=== PATIENT | female | born 1945 | race Caucasian/White ===

== ENCOUNTER → 2018-02-01 12:29 | Outpatient (CLI) | payer MEDICARE, SELFPAY | PROVIDERS: Family Provider Internal Medicine; PCP Internal Medicine; Visit Provider Internal Medicine | DX: Z12.31 Encounter for screening mammogram for malignant neoplasm of breast (principal) | CPT/HCPCS: 77063; 77067 ==

== ENCOUNTER → 2019-02-02 | Outpatient (CLI) | payer MEDICARE, SELFPAY ==
--- NOTE | 2019-02-02 14:29 | BI_ITS ---
MAMMOGRAPHY - BILATERAL SCREENING REASON FOR EXAM: Female, 73 years old. Routine annual screening examination. PERTINENT HISTORY: Mother with breast cancer. Grandmother with breast cancer. Remote right stereotactic breast biopsy. TECHNIQUE: Digital bilateral breast brittany (3D mammographic acquisition) in the CC and MLO projections. 2-D mediolateral oblique (MLO) and craniocaudad (CC) views of both breasts were obtained. CAD: Full Field Digital Mammography with Computer Added Detection was performed. COMPARISON: Comparison is made with prior examination dated February 01, 2018 and November 05, 2016. FINDINGS: Breast Composition: There are scattered areas of fibroglandular density. There are no dominant masses or suspicious calcifications. A tissue clip marker is seen within the deep upper slightly medial aspect of the right breast. A tissue clip marker is also seen in the superior lateral retroareolar region of the right breast. This is unchanged. Stable appearance of the small bilateral axillary lymph nodes. No other significant abnormalities are identified. BI/SCREEN MAMM (CAD) W/BRITTANY BILAT IMPRESSION: Stable bilateral screening mammogram. Yearly follow-up mammogram recommended. (A) ASSESSMENT CATEGORY: BIRADS Category 2: Benign. A letter regarding these results will be sent to the patient by the facility within 30 days. Approximately 10% of breast cancers are not detected by mammography. A normal mammogram should not delay biopsy of a clinically suspicious abnormality. [id number] Electronically Signed: Moisés Peña, at 8:29 EDT , Service support ,
== END | disposition home or self-care (01) ==
LOC: OPBI 14:28
PROVIDERS: Family Provider Internal Medicine; PCP Internal Medicine; Referring Provider Internal Medicine; Visit Provider Internal Medicine
DX: Z12.31 Encounter for screening mammogram for malignant neoplasm of breast (principal)
CPT/HCPCS: 77063; 77067

== ENCOUNTER → 2019-12-14 | Outpatient (CLI) | payer MEDICARE, SELFPAY ==
--- NOTE | 2019-12-14 13:45 | MRI_ITS ---
STUDY: MRI BRAIN WITH AND WITHOUT CONTRAST (ATTENTION INTERNAL AUDITORY CANALS - I.A.C.''s) REASON FOR EXAM: Female, 74 years old. R ear pressure, decresed hearing to a dull sound x 3 mon TECHNIQUE: Standardized multiplanar fat and water weighted pulse sequences were obtained. IV 15cc doatrem was administered for the contrast portion of the examination. COMPARISON: None. FINDINGS: Brain parenchyma is normal. Bilateral temporal bones and related structures are normal. Intracranial enhancement is normal. Bilateral maxillary and right frontal sinuses are fluid-filled with minor mucosal reactive change. Nasopharynx is normal. MRI/Brain W/WO Contrast IMPRESSION: 1. Normal brain. 2. Normal temporal bone related structures. 3. Bilateral maxillary and right frontal sinus reactive changes. Electronically Signed: Dafne Olivas, at 15:36 EDT Tel , Service support ,
[2019-12-14 13:46] LABS: CREATININE FINGERSTICK 0.6 mg/dL (0.55-1.02); EGFR FINGERSTICK > 60.0000 mL/min (>60)
== END | disposition home or self-care (01) ==
LOC: MRI 12:53
PROVIDERS: PCP Internal Medicine; Referring Provider Otolaryngology; Visit Provider Otolaryngology
DX: H91.90 Unspecified hearing loss, unspecified ear (principal)
CPT/HCPCS: 70553; A9575

== ENCOUNTER → 2020-01-18 | Outpatient (CLI) | payer MEDICARE, SELFPAY | END | disposition home or self-care (01) | LOC: MTDU 11:00 | PROVIDERS: PCP Internal Medicine; Referring Provider Otolaryngology; Visit Provider Otolaryngology | DX: Z11.59 Encounter for screening for other viral diseases (principal) | CPT/HCPCS: 87635; 94799; C9803; U0003 ==

== ENCOUNTER → 2020-02-15 | Outpatient (CLI) | payer MEDICARE, SELFPAY ==
--- NOTE | 2020-02-15 13:03 | BI_ITS ---
MAMMOGRAPHY - BILATERAL SCREENING REASON FOR EXAM: Female, 74 years old. Routine annual screening examination. PERTINENT HISTORY: Mother with breast cancer. Grandmother with breast cancer. TECHNIQUE: Digital bilateral breast brittany (3D mammographic acquisition) in the CC and MLO projections. 2-D mediolateral oblique (MLO) and craniocaudad (CC) views of both breasts were obtained. CAD: Full Field Digital Mammography with Computer Added Detection was performed. COMPARISON: Comparison is made with prior examination of 02/02/2019 and 02/01/2018. FINDINGS: Breast Composition: There are scattered areas of fibroglandular density. There are no dominant masses or suspicious calcifications. A tissue clip marker is once again seen in the upper deep slightly medial aspect of the right breast. A second tissue clip marker is seen in the superior lateral aspect of the retroareolar region of the right breast. No other significant abnormalities are identified. There has been no significant change since the prior study. BI/SCREEN MAMM (CAD) W/BRITTANY BILAT IMPRESSION: Stable bilateral screening mammogram. Yearly follow-up mammogram recommended. (A) ASSESSMENT CATEGORY: BIRADS Category 2: Benign. A letter regarding these results will be sent to the patient by the facility within 30 days. Approximately 10% of breast cancers are not detected by mammography. A normal mammogram should not delay biopsy of a clinically suspicious abnormality. [id number] Electronically Signed: Moisés Peña, at 14:23 EDT , Service support ,
== END | disposition home or self-care (01) ==
LOC: OPBI 13:00
PROVIDERS: PCP Internal Medicine; Referring Provider Internal Medicine; Visit Provider Internal Medicine
DX: Z12.31 Encounter for screening mammogram for malignant neoplasm of breast (principal)
CPT/HCPCS: 77063; 77067

== ENCOUNTER 2020-08-04 17:02 | Outpatient (RCR) | payer MEDICARE, SELFPAY | END 2020-08-04 23:59 | LOC: IMMUN 17:02 | PROVIDERS: PCP Internal Medicine; Visit Provider Family Medicine | DX: Z23 Encounter for immunization (principal) | CPT/HCPCS: 0011A; 0012A; 91301 ==

== ENCOUNTER → 2020-12-17 | Outpatient (CLI) | payer MEDICARE, SELFPAY | END | disposition home or self-care (01) | LOC: LABSPEC 12:07 | PROVIDERS: PCP Internal Medicine; Visit Provider Internal Medicine | DX: E87.5 Hyperkalemia (principal) | CPT/HCPCS: 84132 ==

== ENCOUNTER → 2020-12-26 10:53 | Outpatient (CLI) | payer MEDICARE, SELFPAY | PROVIDERS: PCP Internal Medicine; Referring Provider Internal Medicine; Visit Provider Internal Medicine | DX: Z51.81 Encounter for therapeutic drug level monitoring (principal) | CPT/HCPCS: 93225; 93226 ==

== ENCOUNTER → 2021-02-19 13:10 | Outpatient (CLI) | payer MEDICARE, SELFPAY ==
--- NOTE | 2021-02-19 13:13 | BI_ITS ---
MAMMOGRAPHY - BILATERAL SCREENING REASON FOR EXAM: Female, 75 years old. Routine annual screening examination. PERTINENT HISTORY: Mother with breast cancer. Grandmother with breast cancer. Prior right stereotactic breast biopsy. TECHNIQUE: Digital bilateral breast brittany (3D mammographic acquisition) in the CC and MLO projections. 2-D mediolateral oblique (MLO) and craniocaudad (CC) views of both breasts were obtained. CAD: Full Field Digital Mammography with Computer Added Detection was performed. COMPARISON: Comparison is made with prior study dated 02/15/2020 and 02/02/2019. FINDINGS: Breast Composition: There are scattered areas of fibroglandular density. There are no dominant masses or suspicious calcifications. Once again, a tissue clip marker is seen in the upper deep slightly medial aspect of the right breast in keeping with prior biopsy. A second tissue clip marker is also seen in the superior lateral aspect of the retroareolar region of the right breast stable small benign appearing bilateral axillary No other significant abnormalities are identified. There has been no significant change since the prior study. BI/SCRN MAMM (CAD)W/BRITTANY BILAT IMPRESSION: Stable bilateral screening mammogram. Yearly follow-up mammogram recommended. (A) ASSESSMENT CATEGORY: BIRADS Category 2: Benign. A letter regarding these results will be sent to the patient by the facility within 30 days. Approximately 10% of breast cancers are not detected by mammography. A normal mammogram should not delay biopsy of a clinically suspicious abnormality. [id number] Electronically Signed: Moisés Peña MD at 15:12 EDT , Service support ,
--- NOTE | 2021-02-19 13:15 | BD_ITS ---
STUDY: DUAL ENERGY X-RAY ABSORPTIOMETRY / DXA REASON FOR EXAM: Female, 75 years old. Z780. Patient is postmenopausal. TECHNIQUE: Bone Mineral Density (BMD) measurements of lumbar spine and bilateral hips were obtained. COMPARISON: Comparison is made with prior study dated 07/18/2014. FINDINGS: Lumbar Spine (L1-L4): g/cm2 (1.196) / T-score (1.4) / Z-score (3.8) Findings are suggestive of normal bone density with a low fracture risk. Left Femur Total: g/cm2 (0.946) / T-score (0.0) / Z-score (1.9) Left Femoral Neck: g/cm2 (0.888) / T-score (0.4) / Z-score (2.5) Right Femur Total: g/cm2 (0.964) / T-score (0.2) / Z-score (2.0) Right Femoral Neck: g/cm2 (0.90 to) / T-score (0.5) / Z-score (2.6) The T-Scores on the most recent prior examination were: Lumbar Spine (L1-L4): There has been worsening of bone density since the previous examination. Left Femur Total: which represents a worsening of 6.5%. Right Femur Total: which represents a worsening of 14.2%. BD/Dexa Bone Density Study IMPRESSION: The patient is considered normal as outlined below according to World Darrel Organization (WHO) criteria with a low fracture risk. There has been worsening of bone density since the previous examination. Reference Information: The T-score is the number of standard deviations above or below the standard which is normal for young adults at their peak bone mineral density. The World Health Organization (WHO) interprets the T-scores as follows: Above -1 Normal bone density Between -1 and -2.5 Osteopenia Equal to / or below -2.5 Osteoporosis As a practical clinical guideline, osteopenia may be graded as follows: Mild -1 through -1.5 Moderate -1.6 through -2.0 Severe -2.1 through -2.4 The Z-score is the number of standard deviations above or below age-matched controls. A Z-score of less than -1.5 would be considered abnormal. References: 1. NIH Osteoporosis and Related Bone Diseases www osteo.org 2. International Society for Clinical Densitometry www iscd.org 3. National Osteoporosis Foundation www nof.org Electronically Signed: Moisés Peña MD at 13:30 EDT , Service support ,
== END ==
PROVIDERS: PCP Internal Medicine; Referring Provider Internal Medicine; Visit Provider Internal Medicine
DX: Z78.0 Asymptomatic menopausal state (principal); Z12.31 Encounter for screening mammogram for malignant neoplasm of breast
CPT/HCPCS: 77063; 77067; 77080

== ENCOUNTER → 2021-04-01 12:53 | Outpatient (CLI) | payer MEDICARE, SELFPAY ==
--- NOTE | 2021-04-01 13:00 | ECHOCS_ITS ---
Reason For Study: Arrhythmia Procedure This was a 2D Doppler, Color Flow transthoracic echocardiogram. The study was technically difficult. Contrast injection was performed. Exam performed in department. Left Ventricle Left ventricular systolic function is normal. The estimated ejection fraction is 55 %. Septal motion consistent with IVCD. There is evidence of diastolic dysfunction. No regional wall motion abnormalities noted. Right Ventricle Normal RV size. Normal systolic function. Atria The left atrium is mildly enlarged. Normal right atrium. No doppler evidence for ASD. Mitral Valve There is no mitral annular calcification. Normal mitral valve. Mild (1+) mitral valve insufficiency. Tricuspid Valve Normal tricuspid valve. Mild tricuspid valve insufficiency. Right ventricular systolic pressure estimated to be 31 mmHg. Aortic Valve Trisinus/trileaflet aortic valve. Normal aortic valve. Pulmonic Valve The pulmonic valve is not well visualized. Mild-Moderate (1-2+) pulmonic valve insufficiency. Great Vessels Normal sized aortic root. Pericardium/Pleural No pericardial effusion. Medication Diluted definity 4ml given slow IV push to enhance endocardial definition. MMode/2D Measurements & Calculations LVIDd: 4.6 cm IVSd: 1.0 cm Ao root diam: 2.8 cm LVIDs: 3.3 cm LVPWd: 0.97 cm RVDd: 3.3 cm FS: 27.9 % LAV(MOD-sp2): 45.4 ml LVAd ap4: 35.4 cm2 SV(MOD-sp4): 76.0 ml LVLd ap4: 8.1 cm EDV(MOD-sp4): 126.2 ml EDV(sp4-el): 131.1 ml LVAs ap4: 19.2 cm2 LVLs ap4: 5.9 cm ESV(MOD-sp4): 50.2 ml ESV(sp4-el): 53.4 ml EF(MOD-sp4): 60.2 % EF(sp4-el): 59.2 % SV(sp4-el): 77.7 ml LA A4 area: 16.0 cm2 LA dimension(2D): 3.9 cm RA A4 area: 13.9 cm2 Doppler Measurements & Calculations MV E max travis: 50.0 cm/sec Lat Peak E' Travis: 4.5 cm/sec Med Peak E' Travis: 3.6 cm/sec MV A max travis: 95.8 cm/sec E/E' lat: 11.1 E/E' med: 13.8 MV E/A: 0.52 Ao V2 max: 143.0 cm/sec LV V1 max: 98.4 cm/sec PA V2 max: 111.7 cm/sec Ao max P.2 mmHg LV V1 max P.9 mmHg Ao V2 mean: 92.4 cm/sec Ao mean P.8 mmHg Ao V2 VTI: 27.9 cm PI end-d travis: 83.8 cm/sec TR max travis: 262.4 cm/sec TR max P.5 mmHg ECHO/Echo Complete W/ Contrast Interpretation Summary The study was technically difficult. Contrast injection was performed. Left ventricular systolic function is normal. The estimated ejection fraction is 55 %. Septal motion consistent with IVCD. The left atrium is mildly enlarged. Mild (1+) mitral valve insufficiency. Mild tricuspid valve insufficiency. Mild-Moderate (1-2+) pulmonic valve insufficiency. Right ventricular systolic pressure estimated to be 31 mmHg. There is evidence of diastolic dysfunction. Ordering Physician: Barry Winslow Referring Physician: Radha Kuo Performed By: Shaneka Pereira, SYLVAIN, RVT
== END ==
PROVIDERS: PCP Internal Medicine; Referring Provider Internal Medicine Cardiovascular Disease; Visit Provider Internal Medicine Cardiovascular Disease
DX: I49.3 Ventricular premature depolarization (principal)
CPT/HCPCS: 93306; Q9957; A4216; C8929; J3490

== ENCOUNTER → 2021-05-15 13:51 | Outpatient (CLI) | payer MEDICARE, SELFPAY ==
--- NOTE | 2021-05-15 13:59 | CT_ITS ---
STUDY: CT MAXILLOFACIAL SINUSES REASON FOR EXAM: Female, 75 years old. SINUSITIS RADIATION DOSAGE (If Supplied By Facility): CTDIvol = ( 33.06 ) mGy, DLP = ( 784.26 ) mGycm TECHNIQUE: The patient was scanned in a multi detector CT scanner. High resolution axial imaging was performed without the administration of intravenous contrast material. Sagittal and coronal images were reconstructed. Individualized dose optimization techniques were used for this CT. COMPARISON: None. FINDINGS: FRONTAL SINUSES: Opacification of the right frontal sinus. ETHMOIDAL SINUSES: Opacification of the ethmoid sinuses bilaterally. MAXILLARY SINUSES: Opacification of the maxillary sinuses bilaterally. SPHENOIDAL SINUSES: Partial opacification of the sphenoid sinus. The ostiomeatal complexes are obliterated due to the soft tissue proliferation. Normal bilateral middle turbinates. Normal bilateral inferior turbinates. Normal midline nasal septum. There is patency of the bilateral nasal airways. The visualized osseous structures are normal. The visualized bilateral orbital contents are normal. CT/Sinus/Facial Bone IMPRESSION: YAN sinusitis. Electronically Signed: Moisés Peña MD at 14:21 EST , Service support ,
== END ==
PROVIDERS: PCP Internal Medicine; Referring Provider Otolaryngology; Visit Provider Otolaryngology
DX: J32.9 Chronic sinusitis, unspecified (principal)
CPT/HCPCS: 70486

== ENCOUNTER 2021-06-12 12:49 | Outpatient (CLI) | payer MEDICARE, SELFPAY | END 2021-06-12 23:59 | disposition short-term general hospital (02) | PROVIDERS: PCP Internal Medicine; Referring Provider Otolaryngology; Visit Provider Otolaryngology | DX: Z00.00 Encounter for general adult medical examination without abnormal findings (principal) ==

== ENCOUNTER 2021-06-16 07:51 | Day surgery (SDC) | payer MEDICARE, SELFPAY ==
--- NOTE | 2021-06-12 12:58 | EKG12_ITS ---
Test Reason : PREOP Blood Pressure : / mmHG Vent. Rate : 063 BPM Atrial Rate : 063 BPM P-R Int : 174 ms QRS Dur : 166 ms QT Int : 432 ms P-R-T Axes : 009 -42 123 degrees QTc Int : 442 ms Normal sinus rhythm Left axis deviation Left bundle branch block Abnormal ECG Confirmed by SEPIDEH MICHEL, DEAN ([id number]), editor managing director SHAREE BHARDWAJ ([id number]) on 06/15/2021 10:14:55 AM Referred By: RANDY Confirmed By:DEAN BUNN MD
[2021-06-12 17:21] LABS: Anion Gap 6 (5-15); BUN 24 mg/dL (7-18); Calcium,Total 9.8 mg/dL (8.5-10.1); Chloride 104 mmol/L (98-107); Creatinine, Serum 1.33 mg/dL (0.55-1.02); EST Glomerular Filtration Rate 41 mL/min (>60); Est Glom Filt Rate - Afr Amer 50 mL/min (>60); Glucose 88 mg/dL (74-106); Potassium 4.3 mmol/L (3.5-5.1); Sodium Level 137 mmol/L (136-145)
[2021-06-16 08:17] VITALS: BP 123/76; PULSE 55; RESP 16; TEMP 36.5; O2SAT 100; BMI 25.8
[2021-06-16] MEDS: Lactated Ringers 1,000 ML 15 ML IV (08:31)
--- NOTE | 2021-06-16 09:30 | ETH_PTH ---
PATIENT: DERICK DRAPER LOC: [facility] [place] U#:[id number] AGE/SX: 75/F ROOM: RE06/16/[address]: Dr. Raymundo Tavarez MD : 1945 BED: DIS: 06/16/2021 SPEC #: [id number] RECD: 06/16/21 14:53 STATUS: CLAUDIO LONNIE #: [id number] OZ: 06/16/21 09:[address]: Raymundo Tavarez DEPT: SURGICAL PATHOLOGY RECD BY: Nasir Oliveira ENTERED: 06/17/21 09:29 SP TYPE: ETH TISS OTHR DR: Dr. Radha Kuo DO Tissues: A - Ethmoid sinus, NOS B - Ethmoid sinus, NOS Procedures: Decalcification bone/plaque Surgery Specimen Level III HEADER OPERATION: Functional endoscopic sinus surgery, septoplasty, Navigation PRE-OP DIAGNOSIS: Chronic pansinusitis TISSUE SUBMITTED: A ? Left sinus contents, B ? Right sinus contents MICROSCOPIC DIAGNOSIS A. Left sinus contents, curettings: Consistent with chronic sinusitis. Bone with no pathologic change. B. Right sinus contents, curettings: Consistent with chronic sinusitis. Bone with no pathologic change. AM:robbin 06/22/2021 MICROSCOPIC DESCRIPTION Slides are reviewed. GROSS DESCRIPTION A - Received in fixative is one container labeled with the patient's name and designated left sinus contents. The specimen consists of multiple irregular fragments of kaur soft tissue mixed with fragments of bone and turbinate that in aggregate measure 2.5 x 2 x 0.3 cm. The entire specimen is submitted in one cassette after decalcification. B - Received in fixative is one container labeled with the patient's name and designated right sinus contents. The specimen consists of multiple irregular fragments of kaur soft tissue mixed with fragments of bone and turbinate that in aggregate measure 2.5 x 2 x 0.3 cm. The entire specimen is submitted in one cassette after decalcification. / SJ:robbin 06/17/2021 TC:3 CPT: 45347 x2, 31668 x2
--- NOTE | 2021-06-16 11:25 | PCM.DC ---
Discharge Instructions Diet Discharge Diet: No restrictions Activity May shower in (days): 1 Dressing / Incision Call your doctor if your incision/area has: Sudden Increased Bleeding Additional Dressing/Incision Instructions:: sleep with head of bed elevated. saline spray to nose 5 times daily. mupirocin ointment to nose three times daily. Follow Up Care Please Follow Up With: Roger Tavarez MD When: 1 week Test Results: Test results from this visit will be discussed in further detail at your follow-up appointment, if applicable. Discharge Plan Admission Attending Provider: Roger Tavarez Primary Care Provider: Radha Kuo Discharge Orders/Prescriptions Prescriptions: No Action metoprolol tartrate 25 mg tablet 25 mg PO BID Qty: 180 RF: 3 triamcinolone acetonide [Nasacort] 55 mcg aerosol,spray 2 spray intranasal DAILY PRN (Reason: ALLERGIES) RF: 0 omega-3 fatty acids [Fish Oil Concentrate] 1,000 mg capsule 1,000 mg PO DAILY RF: 0 aspirin [Adult Low Dose Aspirin] 81 mg tablet,delayed release (DR/EC) 81 mg PO DAILY RF: 0 bromelains 500 mg tablet 500 mg PO DAILY RF: 0 PreserVision AREDS [id number] capsule 1 cap PO DAILY RF: 0 cholecalciferol (vitamin D3) 25 mcg (1,000 unit) tablet 25 mcg PO DAILY RF: 0 calcium carbonate [Calcium 500] 500 mg calcium (1,250 mg) tablet 500 mg PO DAILY RF: 0 Hair,Skin and Nails Tablet 1 tab PO DAILY RF: 0 Heliocare 240 mg Capsule 240 mg PO DAILY RF: 0 Disposition Discharge Orders: Discharge Patient (Routine); Ordered 06/16/21 Ordered By: Dr. Roger Tavarez
[2021-06-16] MEDS: Oxymetazoline 0.05% 1 SPRAY SPRAY.BTL 15 SPRAY (11:30)
--- NOTE | 2021-06-16 11:34 | OP.PCM_ITS ---
Problems Associated Problem List Diagnoses (1) Chronic pansinusitis: (2) Polyp of nasal cavity: (3) Nasal congestion: (4) Nasal septal deviation: (5) Hypertrophy of inferior nasal turbinate: Report of Operation Date of Procedure: 06/16/21 Pre-Operative Diagnosis: 1. nasal congestion 2. nasal septal deviation 3. inferior turbinate hypertrophy 4. chronic pansinusitis 5. sinonasal polyposis Post-Operative Diagnosis: 1. nasal congestion 2. nasal septal deviation 3. inferior turbinate hypertrophy 4. chronic pansinusitis 5. sinonasal polyposis Surgery/Procedure Performed:: 1. endoscopic maxillary antrostomy with removal of contents, right and left 2. endoscopic total ethmoidecotmy, right and left 3. endoscopic sphenoidotomy with removal of contents, right and left 4. endoscopic frontal sinus exploration removal of contents, right and left 5. septoplasty 6. submucous resection inferior turbinates, right and left 7. excessive removal polyps 8. image guided CT sinus navigation Surgeon: Roger Tavarez Type of Anesthesia: General Description of Procedure: On the day of the procedure, after appropriate info rmed consent was obtained, the patient was brought to the operating room and placed in a supine position on the operating room table. The patient was placed under general endotracheal anesthesia by the anesthesiologist. The endotracheal tube was secured. image guidance navigation was set up on the face and accuracy was confirmed. the nose was injected with lidocaine/epinephrine and decongested with oxymetazoline-soaked pledgets. a marginal incision was made with a #15 blade on the left side. a submucoperichondrial plane was developed on the patient's left side with a maura elevator. this was taken posteriorly to the bony/cartilaginous junction and inferiorly to the maxillary crest. a previous rectangular incision in the anterior septum was noted 1 x 1cm. after an L-strut was marked, a rightward defection was removed with a D-knife and gabby miller. the head of the right and left turbinates were injected with lidocaine/epinephrine. the head of the left inferior turbinate was incised with a 15 blade, dissected submucosally with a maura elevator, reduced using suction electrocautery and outfractured using a boies elevator. the head of the right inferior turbinate was incised with a 15 blade, dissected submucosally with a maura elevator, reduced using suction electrocautery and outfractured using a boies elevator. the marginal incisions and the submucoperichondrial planes were closed with 4-0 chromic. the zero degree endoscope was used to evaluate the nasal cavity. the superior attachment of the right and left middle turbinate and uncinate processes were i njected with lidocaine/epinephrine. the left nasal cavity was evaluated. the middle turbinate was medialized. middle meatus, sphenoethmoidal recess and frontal recess polyps were removed with the microdebrider. a maxillary antrostomy and uncinectomy were performed with a maura elevator and a shana cut. the antrostomy was widened with a back-biter. purulent material was evacuated. the ethmoid bulla was entered bluntly with the suction. a total ethmoidectomy was performed with a curette and an upgoing blakesley. this was taken superiorly to the skull base and laterally to the lamina. a stankewicz maneuver was performed and no laminar defect was noted. the natural sphenoid os was widened with the microdebrider and contents were evacuated. the frontal recess was explored and contents were evacuated. hemostasis was achieved with suction cautery; jessica was placed. the right nasal cavity was evaluated. the middle turbinate was medialized. middle meatus, sphenoethmoidal recess and frontal recess polyps were removed with the microdebrider. a maxillary antrostomy and uncinectomy were performed with a maura elevator and a shana cut. the antrostomy was widened with a back-b iter. purulent material was evacuated. the ethmoid bulla was entered bluntly with the suction. a total ethmoidectomy was performed with a curette and an upgoing blakesley. this was taken superiorly to the skull base and laterally to the lamina. a stankewicz maneuver was performed and no laminar defect was noted. the natural sphenoid os was widened with the microdebrider and contents were evacuated. the frontal recess was explored and contents were evacuated. hemostasis was achieved with suction cautery; jessica was placed. alexander splints were sutured into place. a nasogastric tube was inserted orally and contents were evacuated. the table was rotated 90 degrees toward the anesthesiologist and was subsequently extubated uneventfully. she was transferred to the PACU in stable condition.
[2021-06-16] MEDS: Lidocaine 1% /Epi 1:100 (20ml) 20 ML Vial (12:00)
[2021-06-16] MEDS: Mupirocin Ointment 22gm Tube 1 APPLIC (12:28)
[2021-06-16 13:51] VITALS: BP 116/64; BP 123/76; PULSE 66; RESP 16; TEMP 36.1; O2SAT 95
[2021-06-16 14:00] VITALS: BP 113/40; BP 123/76; PULSE 59; RESP 14; O2SAT 95
[2021-06-16 14:15] VITALS: BP 110/48; BP 123/76; PULSE 53; RESP 16; O2SAT 97
[2021-06-16 14:23] VITALS: BP 123/76; BP 127/64; PULSE 50; RESP 16; TEMP 36.2; O2SAT 97
[2021-06-16] MEDS: Acetaminophen/Codeine #3 Tablet 1 TABLET PO (14:41)
[2021-06-16 15:35] VITALS: BP 107/65; BP 123/76; PULSE 49; RESP 16; TEMP 36.2; O2SAT 97
== END 2021-06-16 23:59 | disposition home or self-care (01) ==
LOC: SDC 07:52 → AC 07:53
PROVIDERS: PCP Internal Medicine; Referring Provider Otolaryngology; Visit Provider Otolaryngology
PROC: (CPT 31267; principal; 2021-06-16 09:00)
DX: J32.4 Chronic pansinusitis (principal); I73.9 Peripheral vascular disease, unspecified; I47.1 Supraventricular tachycardia; J34.2 Deviated nasal septum; J34.3 Hypertrophy of nasal turbinates; J33.0 Polyp of nasal cavity; M19.90 Unspecified osteoarthritis, unspecified site; I44.7 Left bundle-branch block, unspecified; I49.3 Ventricular premature depolarization; Z79.82 Long term (current) use of aspirin; Z79.899 Other long term (current) drug therapy
CPT/HCPCS: 31267; 31253; 31259; 30520; 30140; 00160; 36415; 80048; 88304; 88305; 88311; 93005; J7120; J2405

== ENCOUNTER → 2021-10-08 | Outpatient (CLI) | payer MEDICARE, SELFPAY | END | disposition home or self-care (01) | LOC: LABSPEC 15:08 | PROVIDERS: PCP Internal Medicine; Visit Provider Otolaryngology | DX: J32.9 Chronic sinusitis, unspecified (principal) | CPT/HCPCS: 87070; 87077; 87186; 87205 ==

== ENCOUNTER → 2022-02-22 | Outpatient (CLI) | payer MEDICARE, SELFPAY ==
--- NOTE | 2022-02-22 12:00 | BI_ITS ---
MAMMOGRAPHY - BILATERAL SCREENING 3-D TOMOSYNTHESIS REASON FOR EXAM: Female, 76 years old. SCREENING PERTINENT HISTORY: No significant family history. TECHNIQUE: 2-D mammograms and 3-D Tomosynthesis of the breast (s) were performed. CAD was performed. COMPARISON: 02/19/2021 FINDINGS: The breast composition is composed of scattered fibroglandular density. Scattered benign calcifications are seen. No dense spiculated masses or suspicious microcalcifications are identified. No architectural distortion is identified. There is no skin thickening or retraction. There has been no significant change since the prior study. BI/SCRN MAMM (CAD)W/BRITTANY BILAT IMPRESSION: No mammographic signs of malignancy. Routine yearly mammograms recommended. ASSESSMENT CATEGORY: BIRADS Category 1: Negative. A letter regarding these results will be sent to the patient by the facility within 30 days. FOLLOW UP RECOMMENDATION: Yearly follow up mammogram recommended. (A) Approximately 10% of breast cancers are not detected by mammography. A normal mammogram should not delay biopsy of a clinically suspicious abnormality. Electronically Signed: Jhonathan Marcelino MD at 13:04 EDT ,
== END | disposition home or self-care (01) ==
LOC: OPBI 11:59
PROVIDERS: PCP Internal Medicine; Visit Provider Internal Medicine
DX: Z12.31 Encounter for screening mammogram for malignant neoplasm of breast (principal)
CPT/HCPCS: 77063; 77067

== ENCOUNTER → 2022-12-29 | Outpatient (CLI) | payer MEDICARE, SELFPAY ==
[2022-12-29 12:15] LABS: Creatinine, Serum 0.97 mg/dL (0.55-1.02); EST Glomerular Filtration Rate 59 mL/min (>60); Est Glom Filt Rate - Afr Amer 71 mL/min (>60)
== END | disposition home or self-care (01) ==
LOC: LAB 10:41
PROVIDERS: PCP Internal Medicine; Referring Provider Specialist; Visit Provider Specialist
DX: M25.551 Pain in right hip (principal)
CPT/HCPCS: 36415; 82565

== ENCOUNTER → 2023-02-21 | Outpatient (CLI) | payer MEDICARE, SELFPAY ==
--- NOTE | 2023-02-21 12:54 | BI_ITS ---
MAMMOGRAPHY - BILATERAL SCREENING REASON FOR EXAM: Female, 77 years old. Routine annual screening examination. PERTINENT HISTORY: Mother with breast cancer. Prior right stereotactic breast biopsy. Grandmother with breast cancer. TECHNIQUE: Digital bilateral breast brittany (3D mammographic acquisition) in the CC and MLO projections. 2-D mediolateral oblique (MLO) and craniocaudad (CC) views of both breasts were obtained. CAD: Full Field Digital Mammography with Computer Added Detection was performed. COMPARISON: Comparison is made with prior study dated February 22, 2022 and May 21, 2021. FINDINGS: Breast Composition: There are scattered areas of fibroglandular density. There are no dominant masses or suspicious calcifications. A tissue clip marker is once again seen in the deep upper central portion of the right breast. No other significant abnormalities are identified. There has been no significant change since the prior study. BI/SCRN MAMM (CAD)W/BRITTANY BILAT IMPRESSION: Stable bilateral screening mammogram. Yearly follow-up mammogram recommended. (A) ASSESSMENT CATEGORY: BIRADS Category 2: Benign. A letter regarding these results will be sent to the patient by the facility within 30 days. Approximately 10% of breast cancers are not detected by mammography. A normal mammogram should not delay biopsy of a clinically suspicious abnormality. [id number] Electronically Signed: Moisés Peña MD at 14:22 EDT ,
== END | disposition home or self-care (01) ==
LOC: OPBI 12:53
PROVIDERS: PCP Internal Medicine; Referring Provider Internal Medicine; Visit Provider Internal Medicine
DX: Z12.31 Encounter for screening mammogram for malignant neoplasm of breast (principal); Z80.3 Family history of malignant neoplasm of breast
CPT/HCPCS: 77063; 77067

== ENCOUNTER 2023-03-17 10:24 | Day surgery (SDC) | payer MEDICARE, SELFPAY ==
--- NOTE | 2023-03-14 14:27 | PCM.HP.BLA ---
History and Physical Date of Admission: 03/17/23 HPI: The patient is a 77 year old female presenting for pre-operative visit. She is scheduled for hysteroscopy D&C with polyp resection, for thickened endometrium and endometrial polyp on 03/17/23. Procedure discussed along with risks, benefits and complications. Other alternatives discussed for management. Consent form signed? Yes. ? ? PAST MEDICAL HISTORY PAST MEDICAL HISTORY Diagnosis Date ? BBB (bundle branch block) ? ? left ? Breast microcalcifications 01/21/14 ? right ? GERD (gastroesophageal reflux disease) ? ? HLD (hyperlipidemia) ? ? OA (osteoarthritis) ? ? PVC (premature ventricular contraction) ? ? Vitamin D deficiency ? ? ? PAST SURGICAL HISTORY PAST SURGICAL HISTORY Procedure Laterality Date ? BX BREAST W/DEVICE 1ST LESION STEREOTACTIC GUID ? 01/21/14 ? right ? RADIOLOGICAL EXAMINATION SURGICAL SPECIMEN ? 01/21/14 ? right ? ? ? CURRENT MEDICATIONS Current Outpatient Medications Medication Sig Dispense Refill ? meloxicam (MOBIC) 7.5 mg tablet ? BROMELAINS ORAL Take 1 tablet by mouth once daily. ? ? ? vit A/vit C/vit E/zinc/copper (PRESERVISION AREDS ORAL) Take 1 tablet by mouth once daily. ? ? ? polypodium leucotomos extract (HELIOCARE ORAL) Take 1 tablet by mouth once daily. ? ? ? aspirin, enteric coated (ASPIRIN, ENTERIC COATED) 81 mg EC tablet Take 81 mg by mouth once daily. (Patient not taking: Reported on 02/10/2023) ? ? ? omega-3 fatty acids (FISH OIL CONCENTRATE) 1,000 mg cap Take 1 g by mouth once daily. ? ? ? triamcinolone acetonide (NASACORT AQ NASAL) Use 2 Sprays in the nose once daily as needed. ? ? ? multivitamin tablet Take 1 tablet by mouth once daily. ? ? ? calcium carbonate (CALCIUM 500 ORAL) Take 1 tablet by mouth once daily. ? ? ? cholecalciferol, vitamin D3, (VITAMIN D3 ORAL) Take 1,000 Units by mouth once daily. ? ? ? NIACIN SUSTAINED RELEASE 500 mg tablet (Patient not taking: Reported on 02/10/2023) ? ? ? metoprolol tartrate, short acting, 50 mg tablet Take 50 mg by mouth twice daily. ? ? ? niacin 500 mg tablet Take 500 mg by mouth four times daily. (Patient not taking: Reported on 02/10/2023) ? ? ? No current facility-administered medications for this visit. ? ? ALLERGIES: Avelox [Moxifloxacin Hcl], Cats, Ciprofloxacin Hcl, Dog Hair, Dust, Levaquin [Levofloxacin], Penicillins, and Tequin [Gatifloxacin] ? PERSONAL HISTORY: SOCIAL HISTORY Social History ? Tobacco Use ? Smoking status: Never ? Smokeless tobacco: Never Vaping Use ? Vaping Use: Never used Substance Use Topics ? Alcohol use: No ? Drug use: No ? FAMILY HISTORY: FAMILY HISTORY FAMILY HISTORY Problem Relation Age of Onset ? Breast Cancer Mother 80 ? Heart Brother ? ? Lung Cancer Brother ? ? smoker ? ? REVIEW OF SYMPTOMS: GENERAL: denies fevers or chills ENDOCRINOLOGY: has not been on steroids Cardiology : denies palpitations or chest pain Respiratory: denies SOB or cough Hematology: denies history of prolonged bleeding or easy bruising or VTE Allergy: Denies history of personal or family history of allergy to anesthesia ? PHYSICAL EXAMINATION: ? VITALS: There were no vitals taken for this visit. ? GENERAL: The patient is well nourished, well hydrated in no acute distress. , The patient is oriented to time, place, and person. NECK: Supple. No lynphadenopathy, normal thyroid, no thyromegaly. LUNGS: Clear to auscultation bilaterally. no wheezes, rhonchi or rales HEART: Regular rate and rhythm, Normal heart sounds, and No murmurs or gallops ? IMPRESSION: endometrial polyp on EMB, thickened endometrium on pelvic US ? PLAN: The risks/benefits/alternatives and personal involved for the planned hysteroscopy D&C with polyp resection were reviewed with the patient. Her questions were answered to her satisfaction and she desires to proceed. Consent was signed. I reviewed with her postop instructions and expectations. ? ? I have reviewed and updated past medical and surgical history, medications and allergies Assessment & Plan Assessment/Plan (1) Endometrial thickening on ultrasound: (2) Endometrial polyp:
--- NOTE | 2023-03-17 | EMB_PTH ---
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 Kiara Burger MD : [id number] BED: DIS: 03/17/2023 SPEC #: [id number] RECD: 03/17/23 14:09 STATUS: CLAUDIO RERamona #: [id number] OZ: 03/17/23 00:[address]: Kiara Burger DEPT: SURGICAL PATHOLOGY RECD BY: Tom Osei ENTERED: 03/18/23 10:31 SP TYPE: ENDOM BX/C JOSE DR: Dr. Radha Kuo DO Tissues: Endometrium, NOS Procedures: Surgery Specimen Level IV HEADER OPERATION: Hysteroscopy, D & C Symphion PRE-OP DIAGNOSIS: Endometrial thickening on ultrasound, endometrial polyp TISSUE SUBMITTED: Endometrial curettings MICROSCOPIC DIAGNOSIS Endometrial curettings: A Polypoid fragment of inactive endometrium may present a fragment of benign endometrial polyp. Scant fragment of benign ecto- and endocervical epithelium. See comment. SEVERIANO:robbin 03/21/2023 COMMENT The specimen predominantly consists of blood clot. MICROSCOPIC DESCRIPTION Slides are reviewed. GROSS DESCRIPTION Received in fixative is one container labeled with the patient's name and designated endometrial curettings. The specimen consists of multiple irregular fragments of dark kaur tissue that in aggregate measure 1.5 x 1.0 x 0.1 cm. The specimen is totally submitted in one cassette. / AM:robbin 03/18/2023 TC:5 CPT: 29709
[2023-03-17] MEDS: Lactated Ringers 1,000 ML 15 ML IV (11:14)
[2023-03-17] MEDS: Ketorolac 15 MG/ML Vial IV (11:15)
[2023-03-17 11:16] LABS: Hematocrit 41.8 % (37-47); Hemoglobin 13.5 g/dL (12.0-15.0); Mean Corp Hgb Conc 32.3 g/dL (32-36); Mean Corpuscular Hgb 28.4 pg (27.0-32.0); Mean Corpuscular Volume 87.8 fL (81-99); Mean Platelet Vol. 10.3 fl (6.2-12.0); Platelet Count 261 K/mm3 (150-450); RBC Distribution Width CV 14.7 % (11.6-14.6); RBC Distribution Width SD 47.7 fl (35.1-43.9); Red Blood Count 4.76 M/mm3 (4.2-5.4); White Blood Count 6.3 K/mm3 (4.4-11.0)
[2023-03-17] MEDS: Acetaminophen 500 MG Tablet 1000 MG PO (11:16)
[2023-03-17 11:18] VITALS: BP 116/93; PULSE 53; RESP 18; TEMP 36.8; O2SAT 98; BMI 25.2
[2023-03-17 11:28] LABS: Anion Gap 4 (5-15); BUN 14 mg/dL (7-18); BUN/Creat Ratio 17.4 RATIO (10-20); Calcium,Total 9.3 mg/dL (8.5-10.1); Chloride 110 mmol/L (98-107); EST Glomerular Filtration Rate 73 mL/min (>60); Est Glom Filt Rate - Afr Amer 88 mL/min (>60); Estimated Creatinine Clearance 47.94 ml/min; Glucose 110 mg/dL (74-106); Potassium 4.2 mmol/L (3.5-5.1); Sodium Level 141 mmol/L (136-145)
--- NOTE | 2023-03-17 12:37 | PCM.DC ---
Discharge Instructions Diet Discharge Diet: No restrictions Activity Return to work on:: 03/18/23 May shower in (days): 1 May resume sexual activity in: 2 weeks Lifting Restrictions: none Dressing / Incision Call your doctor if your incision/area has: Sudden Increased Bleeding and Foul Smelling Discharge Call your doctor if you observe: Fever of 101 or Higher and Using more than 1 pad per hour (for 2 hrs in a row) Follow Up Care Please Follow Up With: Kiara Burger MD When: As scheduled or we will contact you with your pathology results next week. Call [phone] or send a [email or web address] message for non-urgent requests Test Results: Test results from this visit will be discussed in further detail at your follow-up appointment, if applicable. Discharge Plan Admission Primary Reason for Your Visit: Hysteroscopy D&C with polyp resection Attending Provider: Kiara Burger Primary Care Provider: Radha Kuo Discharge Orders/Prescriptions Prescriptions: No Action triamcinolone acetonide [Nasacort] 55 mcg aerosol,spray 2 spray intranasal DAILY PRN (Reason: ALLERGIES) Rx Instructions: administer into each nostril omega-3 fatty acids [Fish Oil Concentrate] 1,000 mg capsule 1,000 mg PO DAILY PreserVision AREDS [id number] capsule 1 cap PO DAILY cholecalciferol (vitamin D3) 25 mcg (1,000 unit) tablet 25 mcg PO DAILY calcium carbonate [Calcium 500] 500 mg calcium (1,250 mg) tablet 500 mg PO DAILY Hair,Skin and Nails Tablet 1 tab PO DAILY Heliocare 240 mg Capsule 240 mg PO DAILY metoprolol tartrate 25 mg tablet 25 mg PO BID Qty: 180 3RF Referrals / Follow Up: Radha Kuo DO [Primary Care Provider] - Disposition Disposition (needs filled in before D/C Order can be placed): Home, Self Care
[2023-03-17] MEDS: Vasopressin 20 UNITS/ML Vial (12:42)
--- NOTE | 2023-03-17 12:52 | OP.PCM_ITS ---
Problems Associated Problem List Diagnoses (1) Endometrial polyp: (2) Endometrial thickening on ultrasound: Report of Operation Date of Procedure: 03/17/23 Pre-Operative Diagnosis: thickened endometrium on US, endometrial polyp Post-Operative Diagnosis: thickened endometrium Surgery/Procedure Performed:: Hysteroscopy D&C Description of Surgical Findings:: normal cervix, vagina and endometrial cavity, no discrete pathology noted Surgeon: Kiara Burger petroleum geology faculty member: None Type of Anesthesia: MAC/Supplemental/Local Anesthesiologist: Ben Sampson Special Medications: none Specimen's removed: endometrial curettings Drains: none Estimated Blood Loss (mL): 5 Fluids Replaced: 500 Description of Procedure: The patient was taken to the OR where she was prepped and draped in dorsal lithotomy position. The weighted speculum was placed in the vagina and the anterior lip of the cervix was grasped with a single-tooth tenaculum. A paracervical block was administered with with a spinal needle and control syringe. Dilute vasopressin solution was used the cervix was dilated serially with Hegar dilators. The 5mm hysteroscope was placed into the uterine cavity and the above findings were noted. Bilateral tubal ostia were identified. The hysteroscope was removed. A gentle sharp curettage was done of the uterine cavity. The instruments were removed from the vagina. The specimen was handed off and sent to pathology. All sponge and needle counts were correct. Vaginal sweep was performed by me. The patient was awakened and taken to the recovery room in stable condition. Calculated fluid deficit is 20 cc of normal saline Findings: Endometrial cavity: Normal, no fibroids or polyps noted thin endometrium. Cervix: Normal Vagina: Normal Grafts/Implants Used: none Procedure Start Time: 12:42 Procedure Stop Time: 12:46 Complications none Admit VTE Documentation VTE Present on Admission: No VTE Mechan Device Prophylaxis: [facility] [place]'s VTE Pharm Prophylaxis ordered?: No Reason prophylaxis not ordered:: Procedure Not Indicated
[2023-03-17 12:57] VITALS: BP 116/93; BP 123/73; PULSE 66; RESP 16; TEMP 36.4; O2SAT 95
[2023-03-17 13:00] VITALS: BP 116/93; BP 122/76; PULSE 64; RESP 16; O2SAT 95
[2023-03-17 13:05] VITALS: BP 116/93; BP 132/92; PULSE 63; RESP 16; O2SAT 97
[2023-03-17 13:10] VITALS: BP 116/93; BP 135/79; PULSE 55; RESP 16; TEMP 36.7; O2SAT 96
[2023-03-17 13:53] VITALS: BP 116/93; BP 131/97; PULSE 52; RESP 16; TEMP 36.3; O2SAT 98
== END 2023-03-17 14:00 | disposition home or self-care (01) ==
LOC: SDC 10:28 → AC 10:32
PROVIDERS: PCP Internal Medicine; Referring Provider Obstetrics & Gynecology; Visit Provider Obstetrics & Gynecology
PROC: 0UB98ZZ Excision of Uterus, Via Natural or Artificial Opening Endoscopic (ICD-10-PCS; CPT 58558; principal; 2023-03-17 12:25)
DX: N84.0 Polyp of corpus uteri (principal); E78.5 Hyperlipidemia, unspecified; I10 Essential (primary) hypertension; Z79.899 Other long term (current) drug therapy
CPT/HCPCS: 58558; 00952; 80048; 85027; 88305; J7120; J2405

== ENCOUNTER → 2024-02-23 | Outpatient (CLI) | payer MEDICARE, SELFPAY ==
--- NOTE | 2024-02-23 13:44 | BI_ITS ---
MAMMOGRAPHY - BILATERAL SCREENING REASON FOR EXAM: Female, 78 years old. Routine annual screening examination. PERTINENT HISTORY: Mother with breast cancer. Prior right stereotactic breast biopsy. TECHNIQUE: Digital bilateral breast brittany (3D mammographic acquisition) in the CC and MLO projections. 2-D mediolateral oblique (MLO) and craniocaudad (CC) views of both breasts were obtained. CAD: Full Field Digital Mammography with Computer Added Detection was performed. COMPARISON: Comparison is made with prior study of February 21, 2023 and February 22, 2022. FINDINGS: Breast Composition: There are scattered areas of fibroglandular density. There is a 4.7 mm x 6 mm nodular density in the slightly upper lateral aspect of the right breast. A smaller nodule measuring 3.5 mm is seen in the central depth of the right breast. Correlation with ultrasound is recommended. A tissue clip marker is once again seen in the deep upper slightly medial aspect of the right breast. No other significant abnormalities are identified. BI/SCRN MAMM (CAD)W/BRITTANY BILAT IMPRESSION: There are 2 adjacent nodules in the right breast as described. Correlation with ultrasound is recommended. ASSESSMENT CATEGORY: BIRADS Category 0: Incomplete. Need additional imaging evaluation. A letter regarding these results will be sent to the patient by the facility within 30 days. Approximately 10% of breast cancers are not detected by mammography. A normal mammogram should not delay biopsy of a clinically suspicious abnormality. [id number] Electronically Signed: Moisés Peña MD at 14:54 EDT ,
== END | disposition home or self-care (01) ==
LOC: OPBI 13:44
PROVIDERS: PCP Internal Medicine; Referring Provider Internal Medicine; Visit Provider Internal Medicine
DX: Z12.31 Encounter for screening mammogram for malignant neoplasm of breast (principal)
CPT/HCPCS: 77063; 77067

== ENCOUNTER → 2024-02-27 | Outpatient (CLI) | payer MEDICARE, SELFPAY ==
--- NOTE | 2024-02-27 14:58 | US_ITS ---
STUDY: ULTRASOUND BREAST - RIGHT REASON FOR EXAM: Female, 78 years old. Abnormal screening mammogram. TECHNIQUE: Axial and longitudinal images of the RIGHT breast were performed with a high resolution ultrasound transducer. # OF IMAGES: 51 COMPARISON: Comparison is made with prior mammogram dated February 23, 2024. FINDINGS: RIGHT Breast: The upper-outer quadrant of the right breast was examined with ultrasound. There is an 8 mm x 6 mm x 4 mm cyst at the 10:00 is in the breast 6 cm from nipple. There is also evidence of a 5 mm x 4 mm x 3 mm cyst at the 12:00 position of the breast at 7 cm. Routine mammographic follow-up recommended. US/Breast Limited Unilateral IMPRESSION: Findings suggestive of 2 subcentimeter cysts in the upper outer quadrant of the right breast as described. Routine mammographic follow-up recommended. ASSESSMENT CATEGORY: BIRADS Category 0: Incomplete. Need additional imaging evaluation. A letter regarding these results will be sent to the patient by the facility within 30 days. Electronically Signed: Moisés Peña MD at 12:50 EDT ,
== END | disposition home or self-care (01) ==
LOC: OPUS 14:54
PROVIDERS: PCP Internal Medicine; Referring Provider Internal Medicine; Visit Provider Internal Medicine
DX: N63.10 Unspecified lump in the right breast, unspecified quadrant (principal); R92.8 Other abnormal and inconclusive findings on diagnostic imaging of breast
CPT/HCPCS: 76642

== ENCOUNTER → 2024-04-11 | Outpatient (CLI) | payer MEDICARE, SELFPAY | END | disposition home or self-care (01) | LOC: OPBD 10:47 | PROVIDERS: PCP Internal Medicine; Referring Provider Internal Medicine; Visit Provider Internal Medicine | DX: Z78.0 Asymptomatic menopausal state (principal) | CPT/HCPCS: 77080 ==

== ENCOUNTER → 2025-02-27 | Outpatient (CLI) | payer MEDICARE, SELFPAY ==
--- NOTE | 2025-02-27 15:45 | BI_ITS ---
EXAM: SCRN MAMM (CAD)W/BRITTANY BILAT DATE: 02/27/2025 CLINICAL HISTORY: F, Age 79 y/o , SCREENING TECHNIQUE: Procedure Code: [id number] Modality: MG Procedure: SCRN MAMM (CAD)W/BRITTANY BILAT COMPARISON: Prior exam(s) were compared. FINDINGS: TISSUE DENSITY: The breasts are heterogeneously dense, which may obscure small masses. Bilateral Breast Mammographic Findings: No significant masses, calcifications or other abnormalities are identified. BI/SCRN MAMM (CAD)W/BRITTANY BILAT IMPRESSION: No mammographic evidence of malignancy in either breast. OVERALL FINAL ASSESSMENT BI-RADS 1: NEGATIVE. RECOMMENDATION: Routine annual follow-up in 1 Year Additional Recommendation none A letter with findings and recommendations will be mailed to the patient. Reading Location: [id number]
== END | disposition home or self-care (01) ==
LOC: OPBI 15:31
PROVIDERS: PCP Internal Medicine; Referring Provider Internal Medicine; Visit Provider Internal Medicine
DX: Z12.31 Encounter for screening mammogram for malignant neoplasm of breast (principal)
CPT/HCPCS: 77063; 77067